=== PATIENT | male | born 1980 | race Caucasian/White ===

== ENCOUNTER 2016-09-28 01:20 | Emergency (ER) | payer OTHER ==
--- NOTE | 2016-09-28 01:48 | PDOC ---
History of Present Illness - General Stated Complaint: EXPOSURE Time Seen by Provider: 09/28/16 01:47 Past History - Past Medical History Allergies/Adverse Reactions: Allergies Allergy/AdvReac Type Severity Reaction Status Date / Time No Known Allergies Allergy Verified 09/28/16 02:45 Home Medications: Ambulatory Orders NK [No Known Home Medication] 09/28/16 Review of Systems - Review of Systems Constitutional: No: Symptoms Reported, See HPI, Chills, Diaphoresis, Fever, Loss of Appetite, Malaise, Night Sweats, Weakness, Weight Stable, Unintentional Wgt. Loss, Unexplained wgt Loss, Other HEENTM: No: Symptoms Reported, See HPI, Eye Pain, Blurred Vision, Tearing, Recent change in vision, Double Vision, Cataracts, Ear Pain, Ocular Prothesis, Ear Discharge, Nose Pain, Nose Congestion, Tinnitus, Nose Bleeding, Hearing Loss , Throat Pain, Throat Swelling, Mouth Pain, Dental Problems, Difficulty Swallowing, Mouth Swelling, Other Respiratory: No: Symptoms reported, See HPI, Cough, Orthopnea, Shortness of Breath, SOB with Exertion, SOB at Rest, Stridor, Wheezing, Productive cough, Hemoptysis, Other Cardiac (ROS): No: Symptoms Reported, See HPI, Chest Pain, Edema, Irregular Heart Rate, Lightheadedness, Palpitations, Syncope, Chest Tightness, Other ABD/GI: No: Symptoms Reported, See HPI, Abdominal Distended, Abd. Pain w/ defecation, Blood Streaked Bowels, Constipated, Diarrhea, Difficulty Swallowing , Nausea, Poor Appetite, Poor Fluid Intake, Rectal Bleeding, Vomiting, Indigestion, Abdominal cramping, Tarry Stools, Other Musculoskeletal: Yes: Joint Pain Integumentary: No: Symptoms Reported, See HPI, Bruising, Change in Color, Change in Hair/Nails, Dryness, Erythema, Flushing, Lesions, Lumps, Pallor, Pruritus, Rash, Sweating, Other *Physical Exam - Physical Exam General Appearance: Yes: Nourished, Appropriately Dressed HEENT: positive: EOMI, MARGARITA, Normal ENT Inspection Neck: positive: Tender, Trachea midline Respiratory/Chest: positive: Lungs Clear, Normal Breath Sounds Cardiovascular: positive: Regular Rhythm, Regular Rate, S1, S2, Murmur (pt has a known cardiac murmur) Gastrointestinal/Abdominal: positive: Normal Bowel Sounds, Flat Musculoskeletal: positive: Normal Inspection, CVA Tenderness Extremity: positive: Normal Capillary Refill, Normal Inspection, Normal Range of Motion Integumentary: positive: Normal Color, Dry, Warm Neurologic: positive: status controller II-XII NML intact, Fully Oriented, Alert, Normal Mood/ Affect, Normal Response, Motor Strength 5/5 *DC/Admit/Observation/Transfer Diagnosis at time of Disposition: Hamstring muscle strain, Contusion of knee - Discharge Dispostion Disposition: HOME Condition at time of disposition: Fair Admit: No - Patient Instructions Printed Discharge Instructions: DI for Hamstring Strain, Knee Sprain - Post Discharge Activity Work/School Note: Back to Work
[2016-09-28] MEDS ORDERED: BACITRACIN 15 GM TUBE TOPICAL OINTMENT TP ONE (02:06)
[2016-09-28] MEDS ORDERED: BACITRACIN 0.9 GM PACKET TP ONE (02:15)
[2016-09-28 02:45] VITALS: BP 133/89; PULSE 89; TEMP 98.7; BMI 28.3
[2016-09-28] MEDS ORDERED: IBUPROFEN 600 MG TABLET (FP) PO ONE ×2 (03:54→04:03)
[2016-09-28] MEDS ORDERED: METHOCARBAMOL 500 MG TABLET PO ONE (03:54)
[2016-09-28] MEDS ORDERED: METHOCARBAMOL 500 MG TABLET ONE (04:03)
== END 2016-09-28 04:51 | disposition home or self-care (01) ==
LOC: JER 01:20 → SUPCPDRO 01:20 → JER 04:51
DX: S80.01XA Contusion of right knee, initial encounter (principal); S76.811A Strain of other specified muscles, fascia and tendons at thigh level, right thigh, initial encounter; Y35.811A Legal intervention involving manhandling, law enforcement official injured, initial encounter; Y93.89 Activity, other specified; Y92.89 Other specified places as the place of occurrence of the external cause; Y99.0 Civilian activity done for income or pay
CPT/HCPCS: 99282-25

== ENCOUNTER 2017-01-22 18:32 | Emergency (ER) | payer BC, OTHER ==
[2017-01-22 18:45] VITALS: BP 126/68; PULSE 79; TEMP 98.4; BMI 29.2
--- NOTE | 2017-01-22 18:59 | PDOC ---
History of Present Illness - General Chief Complaint: Pain, Acute Stated Complaint: BACK INJURY ([employer]) Time Seen by Provider: 01/22/17 18:59 History Source: Patient Exam Limitations: No Limitations - History of Present Illness Initial Comments: 01/22/17 19:05 Chief complaint: Back injury [id number] healthy male who states his lower back is been bothering him for little while, but he bent over and now he has worse pain. No incontinence, saddle anesthesia or numbness to the legs. Patient is ambulatory. pt states he took Tylenol earlier. GENERAL/CONSTITUTIONAL: No fever, weakness. dizziness HEAD, EYES, EARS, NOSE AND THROAT: No change in vision. No ear pain or discharge. No sore throat. CARDIOVASCULAR: No chest pain RESPIRATORY: No shortness of breath or cough GASTROINTESTINAL: No pain, nausea, vomiting, diarrhea or constipation GENITOURINARY: No dysuria MUSCULOSKELETAL: No neck, +back pain SKIN: No rash NEUROLOGIC: No headache, vertigo, loss of consciousness, or loss of sensation. GENERAL: The patient is awake, alert, and fully oriented, in no acute distress. HEAD: Normal with no signs of trauma. EYES: Pupils equal, round and reactive to light, sclera anicteric, conjunctiva clear. ENT: pharynx: no erythema, no exudate, uvula midline NECK: supple CHEST: clear, nontender, rr ABD: soft, nontender EXTREMITIES: Normal range of motion, no edema. Strength 5 out of 5, upper and lower extremities, neurovascular intact NEUROLOGICAL: Normal speech, normal gait. SKIN: Warm, Dry Past History - Past Medical History Allergies/Adverse Reactions: Allergies Allergy/AdvReac Type Severity Reaction Status Date / Time No Known Allergies Allergy Verified 01/22/17 18:35 Home Medications: Ambulatory Orders Naproxen [Naprosyn -] 500 mg PO BID PRN #20 tablet 01/22/17 Oxycodone HCl/Acetaminophen [Percocet 5-325 mg Tablet] 1 tab PO Q4H PRN #20 tablet MDD 6 01/22/17 - Immunization History Immunization Up to Date: Yes - Suicide/Smoking/Psychosocial Hx Smoking History: Never smoked Have you smoked in the past 12 months: No Hx Alcohol Use: No Drug/Substance Use Hx: No Substance Use Type: None *Physical Exam - Vital Signs Last Vital Signs Temp Pulse Resp BP Pulse Ox 98.4 F 79 20 126/68 100 01/22/17 18:37 01/22/17 18:37 01/22/17 18:37 01/22/17 18:37 01/22/17 18:37 Medical Decision Making - Medical Decision Making 01/22/17 19:06 Patient with lower back pain, exacerbated by bending over today. Patient is young and healthy, with no incontinence, numbness or tingling, and no saddle anesthesia. We'll treat with Toradol and Valium, patient is very muscular. We' ll reassess 01/22/17 19:40 Patient feels better after Toradol and Valium, is going to drive him home. Patient is alert and oriented and ambulatory We'll continue him on Naprosyn and a small prescription of Percocet for breakthrough pain *DC/Admit/Observation/Transfer Diagnosis at time of Disposition: Back injury Qualifiers: Encounter type: initial encounter Qualified Code(s): S39.92XA - Unspecified injury of lower back, initial encounter; S39.92XA - Unspecified injury of lower back, initial encounter - Discharge Dispostion Disposition: HOME Condition at time of disposition: Stable Admit: No - Prescriptions Prescriptions: Naproxen [Naprosyn -] 500 mg PO BID PRN #20 tablet PRN Reason: Pain Oxycodone HCl/Acetaminophen [Percocet 5-325 mg Tablet] 1 tab PO Q4H PRN #20 tablet MDD 6 PRN Reason: Pain - Referrals Referrals: Marko Alexandra MD [Staff Physician] - - Patient Instructions Printed Discharge Instructions: DI for Low Back Pain Additional Instructions: No heavy lifting or bending Apply ice to the area 20 minutes every 2 hours for the next 2 days Continue taking naprosyn 1 tab every 12 hours for pain. If still in pain he can also take Percocet one to 2 tablets every 4 hours. Return to the nearest ER if numbness, weakness, severe pain, problems with urinating or having bowel movements. Call orthopedist today for an appointment for further evaluation
[2017-01-22] MEDS ORDERED: KETOROLAC TROMETHAMINE 60 MG/2 ML VIAL IM ONE (19:02)
[2017-01-22] MEDS ORDERED: diazePAM 5 MG TABLET PO ONE (19:03)
[2017-01-22] MEDS ORDERED: diazePAM 5 MG TABLET ONE (19:09)
[2017-01-22] MEDS ORDERED: KETOROLAC TROMETHAMINE 60 MG/2 ML VIAL ONE (19:09)
== END 2017-01-22 20:04 | disposition home or self-care (01) ==
LOC: JER 18:32 → JERFT 18:32
PROC: 3E0233Z Introduction of Anti-inflammatory into Muscle, Percutaneous Approach (ICD-10-PCS; principal; 2017-01-22)
DX: S39.82XA Other specified injuries of lower back, initial encounter (principal); X50.9XXA Other and unspecified overexertion or strenuous movements or postures, initial encounter; Y93.89 Activity, other specified; Y92.89 Other specified places as the place of occurrence of the external cause; Y99.8 Other external cause status
CPT/HCPCS: 99281-25

== ENCOUNTER 2017-06-15 00:03 | Emergency (ER) | payer BC, OTHER ==
[2017-06-15 01:11] VITALS: BP 128/81; PULSE 108; TEMP 97.6; BMI 29.0
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
== END 2017-06-15 01:30 | disposition home or self-care (01) ==
LOC: JER 00:03
DX: S20.212A Contusion of left front wall of thorax, initial encounter (principal); S80.02XA Contusion of left knee, initial encounter; S76.312A Strain of muscle, fascia and tendon of the posterior muscle group at thigh level, left thigh, initial encounter; Y35.811A Legal intervention involving manhandling, law enforcement official injured, initial encounter; Y93.89 Activity, other specified; Y92.89 Other specified places as the place of occurrence of the external cause; Y99.0 Civilian activity done for income or pay; W18.39XA Other fall on same level, initial encounter
CPT/HCPCS: 71046-TC-FY; 71101-TC-FY; 99281-25

== ENCOUNTER 2018-02-25 22:18 | Emergency (ER) | payer OTHER ==
[2018-02-25 22:29] VITALS: BP 127/78; PULSE 105; TEMP 99.2; BMI 29.7
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
[2018-02-25] MEDS ORDERED: ACETAMINOPHEN 325 MG TABLET (FP) PO ONE (23:43)
[2018-02-26] MEDS ORDERED: ACETAMINOPHEN 325 MG TABLET (FP) ONE (00:13)
--- NOTE | 2018-02-26 01:26 | PDOC ---
History of Present Illness - General Chief Complaint: Injury Stated Complaint: INJURY Time Seen by Provider: 02/25/18 23:21 History Source: Patient Exam Limitations: No Limitations Past History - Past Medical History Allergies/Adverse Reactions: Allergies Allergy/AdvReac Type Severity Reaction Status Date / Time No Known Allergies Allergy Verified 02/26/18 01:29 Home Medications: Ambulatory Orders Naproxen [Naprosyn -] 500 mg PO BID PRN #20 tablet 01/22/17 Oxycodone HCl/Acetaminophen [Percocet 5-325 mg Tablet] 1 tab PO Q4H PRN #20 tablet MDD 6 01/22/17 Ibuprofen 600 mg PO QID PRN #20 tablet 06/15/17 COPD: No - Immunization History Immunization Up to Date: Yes - Suicide/Smoking/Psychosocial Hx Smoking History: Never smoked Have you smoked in the past 12 months: No Hx Alcohol Use: No Drug/Substance Use Hx: No Substance Use Type: None *Physical Exam - Vital Signs Last Vital Signs Temp Pulse Resp BP Pulse Ox 99.2 F 105 H 20 127/78 96 02/25/18 22:27 02/25/18 22:27 02/25/18 22:27 02/25/18 22:27 02/25/18 22:27 Moderate Sedation - Procedure Monitoring Vital Signs: Procedure Monitoring Vital Signs Temperature 99.2 F 02/25/18 22:27 Pulse Rate 105 H 02/25/18 22:27 Respiratory Rate 20 02/25/18 22:27 Blood Pressure 127/78 02/25/18 22:27 O2 Sat by Pulse Oximetry (%) 96 02/25/18 22:27 ED Treatment Course - RADIOLOGY Radiology Studies Ordered: Category Date Time Status ELBOW-RIGHT [RAD] Stat Radiology 02/26/18 00:57 Taken RIBS RIGHT SIDE [RAD] Stat Radiology 02/26/18 00:58 Taken - Medications Given in the ED: ED Medications Discontinued Medications Generic Name Dose Route Start Last Admin Trade Name Freq PRN Reason Stop Dose Admin Acetaminophen 975 mg 02/25/18 23:43 02/26/18 00:22 Tylenol - PO 02/25/18 23:44 975 mg ONCE ONE Administration Medical Decision Making - Medical Decision Making Pt was seen at bedside, also will be seen by attending Dr. Garland. Pt presenting with PE showed [] Considering [vs vs] Ordered work-up including [labs] and [imaging]. Provided [interventions/meds] for improvement of [pain/symptom control]. Will continue to reassess pt and monitor for symptomatic improvement. 02/26/18 01:23 *DC/Admit/Observation/Transfer Diagnosis at time of Disposition: Rib pain on right side Sprain of elbow, right Qualifiers: Encounter type: initial encounter Qualified Code(s): S53.401A - Unspecified sprain of right elbow, initial encounter - Discharge Dispostion Disposition: HOME Condition at time of disposition: Good Decision to Admit order: No - Referrals [place] [facility] [place] [facility] [place]] Shyam Hinds MD [Staff Physician] - - Patient Instructions Printed Discharge Instructions: DI for Rib Contusion, DI for Elbow Sprain Additional Instructions: You were seen in the ER today for elbow and rib pain after a fall. The results of your imaging today showed no acute fractures. Please follow-up with your primary care doctor and orthopedics within 1-2 days to discuss your visit and make sure your symptoms have improved. Please return to the ER if you have any worsening pain, development of fevers or chills, loss of consciousness, inability to tolerate food or fluids, or any other concerns. - Post Discharge Activity Forms/Work/School Notes: Back to Work
== END 2018-02-26 01:31 | disposition home or self-care (01) ==
LOC: JER 22:18
DX: S53.401A Unspecified sprain of right elbow, initial encounter (principal); S20.211A Contusion of right front wall of thorax, initial encounter; Y35.811A Legal intervention involving manhandling, law enforcement official injured, initial encounter; Y93.89 Activity, other specified; Y92.89 Other specified places as the place of occurrence of the external cause; Y99.0 Civilian activity done for income or pay
CPT/HCPCS: 71101-TC-RT-FY; 73070-TC-RT-FY; 99283-25

== ENCOUNTER 2019-02-18 19:11 | Emergency (ER) | payer BC, OTHER ==
[2019-02-18 19:16] VITALS: BP 134/87; PULSE 82; TEMP 98.3; BMI 28.1
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
== END 2019-02-18 20:25 | disposition home or self-care (01) ==
LOC: JERFT 19:11
DX: H93.12 Tinnitus, left ear (principal); M54.2 Cervicalgia; V47.5XXA Car driver injured in collision with fixed or stationary object in traffic accident, initial encounter; Y92.488 Other paved roadways as the place of occurrence of the external cause; Y93.89 Activity, other specified; Y99.8 Other external cause status
CPT/HCPCS: 99282-25

== ENCOUNTER 2019-10-13 19:14 | Emergency (ER) | payer BC, OTHER ==
[2019-10-13 19:22] VITALS: BP 118/75; PULSE 103; TEMP 97.9; BMI 27.3
--- NOTE | 2019-10-13 21:25 | PDOC ---
Post Exposure HPI - General Chief Complaint: Blood/Body Fluid Exposure SJR Stated Complaint: B arm blood exposure/R knee pain Time Seen by Provider: 10/13/19 19:31 Past History - Medical History Allergies/Adverse Reactions: Allergies Allergy/AdvReac Type Severity Reaction Status Date / Time No Known Allergies Allergy Verified 02/18/19 19:17 Home Medications: Ambulatory Orders Naproxen [Naprosyn -] 500 mg PO BID PRN #20 tablet 01/22/17 Oxycodone HCl/Acetaminophen [Percocet 5-325 mg Tablet] 1 tab PO Q4H PRN #20 tablet MDD 6 01/22/17 Ibuprofen 600 mg PO QID PRN #20 tablet 06/15/17 COPD: No - Immunization History Immunization Up to Date: Yes - Psycho-Social/Smoking History Smoking History: Never smoked Have you smoked in the past 12 months: No - Substance Abuse Hx (Audit-C & DAST Scrn) How often the patient has a drink containing alcohol: Never Score: In Men: 4 or > Positive; In Women: 3 or > Positive: 0 Screen Result (Pos requires Nsg. Audit-10AR): Negative *Physical Exam - Vital Signs Last Vital Signs Temp Pulse Resp BP Pulse Ox 97.9 F 103 H 20 118/75 98 10/13/19 19:14 10/13/19 19:14 10/13/19 19:14 10/13/19 19:14 10/13/19 19:14 Discharge - Discharge Information Problems reviewed: Yes Clinical Impression/Diagnosis: Exposure to blood or body fluid Abrasion of right knee Qualifiers: Encounter type: initial encounter Qualified Code(s): S80.211A - Abrasion, right knee, initial encounter Condition: Stable Disposition: HOME - Follow up/Referral - Patient Discharge Instructions Patient Printed Discharge Instructions: How to Handle Body Fluid Exposure -- Non-Healthcare Worker (At Home, [facility]gi Additional Instructions: Bacitracin/Neosporin ointment to abrasions daily Return to ER or see your doctor if area of exposure becomes redness/painful Return to ER if you develop fever Follow-up with your doctor within the next 5 days
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
== END 2019-10-13 21:26 | disposition home or self-care (01) ==
LOC: FER 19:14
DX: Z77.21 Contact with and (suspected) exposure to potentially hazardous body fluids (principal)
CPT/HCPCS: 99282-25

== ENCOUNTER 2019-10-20 20:05 | Emergency (ER) | payer OTHER ==
[2019-10-20 20:41] VITALS: BP 122/87; PULSE 96; TEMP 98.6; BMI 28.1
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
[2019-10-20] MEDS ORDERED: DIPHTH,PERTUSS(ACELL),TET 0.5 ML DISP.SYRIN IM ONE ×2 (20:57→20:58)
== END 2019-10-20 21:07 | disposition home or self-care (01) ==
LOC: FER 20:05
PROC: 3E0234Z Introduction of Serum, Toxoid and Vaccine into Muscle, Percutaneous Approach (ICD-10-PCS; principal; 2019-10-20)
DX: S80.212A Abrasion, left knee, initial encounter (principal); S80.211A Abrasion, right knee, initial encounter; S00.511A Abrasion of lip, initial encounter; S50.312A Abrasion of left elbow, initial encounter
CPT/HCPCS: 90715; 99284-25

== ENCOUNTER 2019-12-22 16:49 | Emergency (ER) | payer OTHER ==
[2019-12-22 16:55] VITALS: BP 122/81; PULSE 94; TEMP 99.6; BMI 29.0
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
== END 2019-12-22 18:20 | disposition home or self-care (01) ==
LOC: FER 16:49
DX: H91.13 Presbycusis, bilateral (principal)
CPT/HCPCS: 99283-25